=== PATIENT | male | born 1975 | race Two or more races ===

== ENCOUNTER 2019-04-21 13:27 | Inpatient (IN) | payer SELFPAY ==
[~2019-04-21] VITALS: Ht 172.7 cm; Wt 86.2 kg
[2019-04-21] MEDS ORDERED: LORazepam Inj 2mg/ml 1ml IV ONE (13:30)
--- NOTE | 2019-04-21 13:30 | NUR ---
ED Nurse Note: Patient brought in by ambulance RA 27 from work c/o numbness and tingling sensations on the left arm and left leg, left anterior chest pressure like pain 2/10 at this time 45 minutes prior to arrival to ED. patient is alert awake x4 amublatory, reports he feels difficulty breathing, placed patient on a child monitor and on a hospital gown.
[2019-04-21 13:58] LABS: HEMATOCRIT 44.9 % (42.0-52.0); HEMOGLOBIN 15.5 G/DL (14.2-18.0); LYMPHOCYTES % (AUTO) 23.8 % (20.0-45.0); MEAN CORPUSCULAR VOLUME 86 FL (80-99); MONOCYTES % (AUTO) 5.5 % (1.0-10.0); NEUTROPHILS % (AUTO) 65.7 % (45.0-75.0); PLATELET COUNT 261 K/UL (150-450); RED BLOOD COUNT 5.21 M/UL (4.70-6.10); RED CELL DISTRIBUTION WIDTH 10.8 % (11.6-14.8); WHITE BLOOD COUNT 7.1 K/UL (4.8-10.8)
[2019-04-21 14:06] LABS: ANION GAP 11 mmol/L (5-15); BLOOD UREA NITROGEN 17 mg/dL (7-18); CALCIUM 8.9 MG/DL (8.5-10.1); CARBON DIOXIDE 26 MMOL/L (21-32); CHLORIDE 103 MMOL/L (98-107); CREATININE 1.1 MG/DL (0.55-1.30); POTASSIUM 3.8 MMOL/L (3.5-5.1); SODIUM 140 MMOL/L (136-145)
[2019-04-21 14:11] LABS: INR 0.9 (0.9-1.1)
--- NOTE | 2019-04-21 14:11 | Emergency Room Report ---
History of Present Illness General Chief Complaint: Chest Pain Source: Patient Present Illness HPI Patient was at work today and 45 minutes prior to EMS arriving he started having tingling in his left arm with some chest discomfort. The chest discomfort is poorly described but he admits to possible sharpness and pressure left-sided nonradiating. Initially he reports that pain at 10/10. He also had some tingling in his leg without any weakness. He started to get anxious and started to have tingling around his mouth also. The patient states this is never happened to him before. He denies any headache. He has a history of hypertension. He was drinking alcohol yesterday. He drinks alcohol frequently. He only drinks beer. Risk factors for cardiac disease: Hypertension No fevers, chills, sore throat, palpitations, nausea, vomiting, diarrhea, dysuria, abdominal pain, shortness of breath, joint pain, rashes, depression, visual changes, dizziness. Allergies: Coded Allergies: PEANUT (Verified Allergy, Mild, 04/21/19) Patient History Past Medical History: see triage record Social History: Reports: alcohol use; Denies: smoking, drug use Social History Narrative Obstetrics/Gynecology Nurse, born in [place] Reviewed Nursing Documentation: PMH: Agreed; PSxH: Agreed Nursing Documentation-PMH Past Medical History: No Stated History Review of Systems All Other Systems: negative except mentioned in HPI Physical Exam Vital Signs Date Time Temp Pulse Resp B/P (MAP) Pulse Ox O2 Delivery O2 Flow Rate FiO2 04/21/19 13:22 98.2 116 16 160/108 (125) 99 Room Air Sp02 EP Interpretation: reviewed, normal General Appearance: well appearing, no apparent distress, GCS 15, non-toxic Head: normocephalic Eyes: bilateral eye normal inspection, bilateral eye PERRL, bilateral eye EOMI ENT: moist mucus membranes Neck: supple Respiratory: lungs clear, normal breath sounds Cardiovascular #1: no edema, tachycardia Cardiovascular #2: 2+ radial (R) Gastrointestinal: normal inspection, normal bowel sounds, non tender, no mass, non-distended Genitourinary: no CVA tenderness Musculoskeletal: back normal, gait/station normal, normal range of motion Neurologic: alert, oriented x3, analytical strategist III-XII nml as tested, motor strength/tone normal, DTRs symmetric, cerebellar normal, normal gait, speech normal, sensory deficit - Subjective numbness left arm and left leg Psychiatric: anxious Skin: no rash, warm/dry Medical Decision Making Diagnostic Impression: Primary Impression: Chest pain Qualified Codes: R07.9 - Chest pain, unspecified Additional Impressions: Paresthesias Resting tachycardia Alcohol use ER Course Patient presents with left-sided chest pain and numbness in the left arm and leg paresthesias. Differential includes acute myocardial infarction, acute coronary syndrome, gastritis, reflux, stroke, anxiety, electrolyte imbalance amongst others. Patient will be evaluated with EKG, CT head, chest x-ray and labs. Patient is placed on a bus monitor. There is no evidence of major cerebral infarct based on physical exam. EKG sinus tachycardia right axis deviation with P pulmonale no acute changes. CT of the head no obvious infarct or bleeds. Chest x-ray clear. Labs unremarkable. Troponin negative. Aspirin was given. Patient somewhat more calm after Ativan however he states that the paresthesias and numbness still persistent on the left-hand side. The chest pain now is 2/ 10. Due to the presentation of chest pain and left-sided paresthesias patient admitted for observation. Consideration for neurologic consultation. Admit telemetry observation Dr. Hernandez. Laboratory Tests Test 04/21/19 13:30 04/21/19 15:40 04/21/19 19:15 White Blood Count 7.1 K/UL (4.8-10.8) Red Blood Count 5.21 M/UL (4.70-6.10) Hemoglobin 15.5 G/DL (14.2-18.0) Hematocrit 44.9 % (42.0-52.0) Mean Corpuscular Volume 86 FL (80-99) Mean Corpuscular Hemoglobin 29.8 PG (27.0-31.0) Mean Corpuscular Hemoglobin Concent 34.5 G/DL (32.0-36.0) Red Cell Distribution Width 10.8 % (11.6-14.8) L Platelet Count 261 K/UL (150-450) Mean Platelet Volume 4.9 FL (6.5-10.1) L Neutrophils (%) (Auto) 65.7 % (45.0-75.0) Lymphocytes (%) (Auto) 23.8 % (20.0-45.0) Monocytes (%) (Auto) 5.5 % (1.0-10.0) Eosinophils (%) (Auto) 4.0 % (0.0-3.0) H Basophils (%) (Auto) 1.0 % (0.0-2.0) Erythrocyte Sedimentation Rate 5 MM/HR (0-15) Prothrombin Time 9.7 SEC (9.30-11.50) Prothrombin Time INR 0.9 (0.9-1.1) PTT 24 SEC (23-33) Sodium Level 140 MMOL/L (136-145) Potassium Level 3.8 MMOL/L (3.5-5.1) Chloride Level 103 MMOL/L (98-107) Carbon Dioxide Level 26 MMOL/L (21-32) Anion Gap 11 mmol/L (5-15) Blood Urea Nitrogen 17 mg/dL (7-18) Creatinine 1.1 MG/DL (0.55-1.30) Estimate Glomerular Filtration Rate > 60 mL/min (>60) Glucose Level 150 MG/DL (74-106) H Calcium Level 8.9 MG/DL (8.5-10.1) Magnesium Level 2.0 MG/DL (1.8-2.4) Total Bilirubin 0.6 MG/DL (0.2-1.0) Aspartate Amino Transferase (AST) 22 U/L (15-37) Alanine Aminotransferase (ALT) 28 U/L (12-78) Alkaline Phosphatase 59 U/L (46-116) Total Creatine Kinase 249 U/L (26-308) Creatine Kinase MB 4.2 NG/ML (0.0-3.6) H Creatine Kinase MB Relative Index 1.6 Troponin I 0.007 ng/mL (0.000-0.056) 0.000 ng/mL (0.000-0.056) Pro-B-Type Natriuretic Peptide 45 pg/mL (0-125) Total Protein 7.4 G/DL (6.4-8.2) Albumin 4.0 G/DL (3.4-5.0) Globulin 3.4 g/dL Albumin/Globulin Ratio 1.2 (1.0-2.7) Thyroid Stimulating Hormone (TSH) 1.576 uiU/mL (0.358-3.740) 1.321 uiU/mL (0.358-3.740) Serum Alcohol < 3 mg/dL Urine Opiates Screen Negative (NEGATIVE) Urine Barbiturates Screen Negative (NEGATIVE) Phencyclidine (PCP) Screen Negative (NEGATIVE) Urine Amphetamines Screen Negative (NEGATIVE) Urine Benzodiazepines Screen Negative (NEGATIVE) Urine Cocaine Screen Negative (NEGATIVE) Urine Marijuana (THC) Screen Negative (NEGATIVE) EKG Diagnostic Results Rate: tachycardiac Rhythm: NSR ST Segments: no acute changes - Right axis deviation ASA given to the pt in ED: Yes Rhythm Strip Diag. Results EP Interpretation: yes Rhythm: no PVC's, no ectopy, other - ST Chest X-Ray Diagnostic Results Chest X-Ray Diagnostic Results : Chest X-Ray Ordered: Yes # of Views/Limited/Complete: 1 View Indication: Chest Pain EP Interpretation: Yes Interpretation: no consolidation, no effusion, no pneumothorax Impression: No acute disease Electronically Signed by: Electronically signed by Henry Thakur MD CT/MRI/US Diagnostic Results CT/MRI/US Diagnostic Results : Imaging Test Ordered: Head Impression Impression: No mass effect, edema or acute bleed. Last Vital Signs Date Time Temp Pulse Resp B/P (MAP) Pulse Ox O2 Delivery O2 Flow Rate FiO2 04/21/19 18:23 Room Air 04/21/19 17:50 98.2 113 22 144/81 99 Status: improved Disposition: PLACE IN OBSERVATION Condition: Serious Henry Thakur MD Apr 21, 2019 14:11
--- NOTE | 2019-04-21 14:12 | Diagnostic Imaging Report ---
Indication: Left arm neurosensory deficit. Left arm tingling Technique: Contiguous 5 mm thick transaxial imaging of the head obtained in a Siemens Sensation [address] scanner. Soft tissue and bone windows generated. Automatic Exposure Control was utilized. Total Dose length Product (DLP): 1457.[address] Dose Index Volume (CTDIvol): 62.7 mGy Comparison: none Findings: The size and configuration of the cortical sulci, basal cisterns, and ventricles are within normal limits for age. There is no mass effect, midline shift, or edema identified. There is no evidence of acute hemorrhage or abnormal intra-axial or extra-axial fluid collections. The bones and soft tissues are unremarkable. Impression: No mass effect, edema or acute bleed. The CT scanner at [facility] is accredited by the [employer] and the scans are performed using dose optimization techniques as appropriate to a performed exam including Automatic Exposure control.
--- NOTE | 2019-04-21 14:13 | Diagnostic Imaging Report ---
Indication: Dyspnea Comparison: None A single view chest radiograph was obtained. Findings: Cardiomediastinal appearance is within normal limits for age. The lungs are clear. Pulmonary vascularity is appropriate. The diaphragmatic contour is smooth and costophrenic angles are sharp. No pleural effusions are identified. The bones are unremarkable. Impression: No acute findings
[2019-04-21 14:22] LABS: ALANINE AMINOTRANSFERASE 28 U/L (12-78); ALBUMIN/GLOBULIN RATIO 1.2 (1.0-2.7); ALKALINE PHOSPHATASE 59 U/L (46-116); ASPARTATE AMINO TRANSFERASE 22 U/L (15-37); BILIRUBIN,TOTAL 0.6 MG/DL (0.2-1.0); CKMB 4.2 NG/ML (0.0-3.6); CREATINE KINASE 249 U/L (26-308)
[2019-04-21 14:37] VITALS: BP 138/88
[2019-04-21 16:51] VITALS: BP 144/81
--- NOTE | 2019-04-21 16:56 | NUR ---
ED Nurse Note: Report given to Francia ALEX. endorsed all plan of care to FRANCIA ALEX.
--- NOTE | 2019-04-21 17:50 | NUR ---
ED Nurse Note: patient transferred to 2E on ACLS protocol with all of his belongings.
--- NOTE | 2019-04-21 18:00 | NUR ---
NURSE NOTES: Patient transferred from ED to tele, received report from ISAI Hill. Patient AOx4, able to ambulate gurney to hospital bed with steady gait. Patient stated pain is better and getting full sensation back on the left hand. VS at the time of arrival 138/79, T 99.0, R 16, O2 sat on room air 97%, SR at this time. Belonging list checked, patient refused to put barbosa in the safe. child monitor on. IV on left AC 20G, asymptomatic, patent, intact. Bed in lowest position, side rails ups x2, call light within reach. Will continue to monitor.
--- NOTE | 2019-04-21 18:30 | NUR ---
NURSE NOTES: Left message on Dr. Hernandez regarding admission order. Awaiting for callback. Will continue to monitor.
--- NOTE | 2019-04-21 19:20 | NUR ---
NURSE NOTES: Dr. Hernandez at the nursing station, made aware admission order needed. Per Dr. Hernandez, will put in order.
--- NOTE | 2019-04-21 19:39 | NUR ---
HAND-OFF: Report given to ISAI Caraballo.
[2019-04-21 20:00] VITALS: BP 134/85
--- NOTE | 2019-04-21 20:00 | NUR ---
NURSE NOTES: Report received from Francia ALEX. Patient is observed in bed, awake, alert, oriented, and able to make needs known. IV is asymptomatic, patent, and intact. Patient denies any CP. Patient admits paresthesia in left arm has subsided. Radial pulse, sensation, and color are present. No abnormalities noted. Equal cone worker strength. Patient is in lowest position with side rails up x2 and brakes are engaged. Encouraged patient to use call light when in need of assistance, pt verbalized understanding. Urinal and call light within reach.
[2019-04-21] MEDS: Aspirin Baby 81mg ORAL SCH (21:46)
--- NOTE | 2019-04-21 22:30 | History and Physical Report ---
DATE OF ADMISSION: 04/21/2019 REASON FOR ADMISSION: Chest pain with left arm and leg pain. HISTORY OF PRESENT ILLNESS: This is a 43-year-old male with no prior cardiac or medical history. 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 He was doing his usual duties today on his knees bending forward and painting most of the day. He developed some tingling in his left arm and leg with some weakness for a short time. He also noted some left-sided chest aching under his armpit. He came to the emergency room where workup included a CAT scan of the brain revealing no acute process and an EKG revealing sinus tachycardia with no acute ST-T wave changes. Troponin level #1 was negative. PAST MEDICAL HISTORY: Otherwise negative. ALLERGIES: Include peanuts. MEDICATIONS: None. FAMILY HISTORY: Noncontributory. SOCIAL HISTORY: Negative for smoking, alcohol, or substance abuse. REVIEW OF SYSTEMS: Otherwise unremarkable. PHYSICAL EXAMINATION: VITAL SIGNS: Blood pressure 160/108 in the emergency room with heart rate 116, respiratory rate 16, and he was afebrile. Presently blood pressure 144/81, heart rate 113, respiratory rate 22, afebrile. NECK: Supple. No bruits. Jugular venous pressure normal. LUNGS: Clear. CARDIAC: Regular. Normal S1, S2 with no murmur, rub, or gallop. Left chest wall with no reproducible chest discomfort. ABDOMEN: Soft, nontender. EXTREMITIES: No edema. NEUROLOGIC: Nonfocal. IMAGING: Chest x-ray with no acute process. No active disease. IMPRESSION: 1. Noncardiac chest pain. 2. Sinus tachycardia, likely due to anxiety. 3. Possible transient ischemic attack versus positional related paresthesias. PLAN: 1. Cardiac monitoring. 2. Antiplatelet therapy. 3. Carotid duplex study. 4. Follow up troponin level. 5. Thyroid panel. 6. Lipid panel. 7. Further recommendations to follow once preliminary workup is complete. Should there be any recurring such symptoms during this hospital stay, more emergent imaging study of the central nervous system maybe considered. Henry Hernandez M.D. ELVIRA FORBES JOB#: [id number] CC:
--- NOTE | 2019-04-21 23:59 | NUR ---
NURSE NOTES: Patient is asleep, arousable by voice. Denies pain at this time. VSS. Will continue to monitor.
[2019-04-22] VITALS: BP 122/80
[2019-04-22 04:00] VITALS: BP 131/88
--- NOTE | 2019-04-22 07:25 | NUR ---
HAND-OFF: Report given to Nereyda ALEX. Patient observed in bed, eating breakfast. Endorsed plan of care.
--- NOTE | 2019-04-22 07:26 | NUR ---
NURSE NOTES: Received patient in bed. In no apparent distress. On room air. No respiratory distress. Denies any pain. Will continue plan of care.
[2019-04-22 07:47] LABS: CHOLESTEROL 261 MG/DL (< 200); HDL CHOLESTEROL 69 MG/DL (40-60); TRIGLYCERIDES 117 MG/DL (30-150)
[2019-04-22 08:00] VITALS: BP 131/84
[2019-04-22] MEDS: Aspirin Baby 81mg ORAL SCH (09:11)
[2019-04-22 12:00] VITALS: BP 122/70
--- NOTE | 2019-04-22 13:33 | Diagnostic Imaging Report ---
APPROVED REPORT CPT Code: 56650 Vascular Symptoms Comments: AMS CAROTID (BILATERAL) - Imaging reveals no significant plaque within the right and left extracranial carotid arteries. The Doppler spectral flow analysis is within normal limits throughout the extracranial carotid arteries bilaterally. SUBCLAVIANS/VERTEBRALS - Imaging reveals both subclavians and vertebral arteries to be patent, without evidence of stenosis or steal.
[2019-04-22 16:00] VITALS: BP 120/77
--- NOTE | 2019-04-22 16:33 | NUR ---
CASE MANAGEMENT:REVIEW 43 YR OLD MALE BIBA FROM WORK CC; CHEST PAIN AND SOB SI: CHEST PAIN. ALCOHOL USE 98.3 116 16 160/108 99% ON RA TROPONIN(-) IS: IV ATIVAN 1L NS BOLUS CT HEAD CXR : TO TELEMETRY IS: ASA PO QD
--- NOTE | 2019-04-22 16:47 | Cardiology Report ---
APPROVED REPORT EKG Measurement Heart [id number] Sinus tachycardia Rightward axis Borderline ECG
--- NOTE | 2019-04-22 19:16 | NUR ---
HAND-OFF: Report given to Sloane Bwoden RN.
--- NOTE | 2019-04-22 19:30 | NUR ---
NURSE NOTES: Received pt from ISAI Collins. Pt awake, alert, and awaiting removal of IV for D/C. Family at bedside. Will continue to monitor.
--- NOTE | 2019-04-22 20:02 | NUR ---
NURSE NOTES: Pt discharged. Family came to pick him up. IV site, tele box, and armband removed. Packet,prescriptions, and belongings remained with patient.
--- NOTE | 2019-04-23 14:15 | Discharge Summary ---
Discharge Summary Discharge Summary _ DATE OF ADMISSION: 04/21/2019 DATE OF DISCHARGE: 04/22/2019 DISCHARGED BY: Dr. Hernandez REASON FOR ADMISSION: 43 years old male with past medical history of hypertension, presented with chest discomfort and tingling in his left arm , while being at work. Chest discomfort was poorly described . initially pain reported as 10 out of 10 . Patient also had some tingling in his left leg without any weakness. He started to get more anxious and reported tingling around his mouth. Patient stated that these symptoms never happened to him before. He denied headache. He was drinking alcohol the day prior to presentation to emergency department. Patient reported frequent use of alcohol, but only drinks beer. Upon evaluation patient was tachycardic with heart rate 116. Blood pressure was elevated 160/108. Laboratory work-up revealed no leukocytosis, stable hemoglobin and hematocrit , stable platelet count. Stable electrolytes and renal parameters. Glucose 150. Stable LFT . TSH within normal limits. Troponin 0.007, ProBNP 45. EKG revealed sinus tachycardia with right axis deviation. Serum alcohol less than 3. Urine toxicology screen was negative. Alcohol level less than 3. Chest x-ray revealed no acute cardiopulmonary pathology. CT of the head revealed no acute intracranial pathology. In emergency department patient received aspirin and Ativan . After re-evaluation in ED, patient still was reported persistent paresthesia and numbness on the left side. Pain decreased to 2 out of 10. Patient subsequently admitted to telemetry floor for further management. HOSPITAL COURSE: Patient admitted to telemetry floor. Telemetry revealed sinus rhythm. Initial tachycardia resolved. Repeated troponin was negative. EKG and telemetry were negative. Patient was ruled out for acute HI. Patient was continued on antiplatelet therapy with Aspirin. Lipid panel revealed elevated cholesterol 261 , elevated LDL of 175 . Patient started on statin . Patient was counseled on low-fat low-cholesterol diet. Carotid duplex was unremarkable. Blood pressure stabilized without any antihypertensive medications. Prior to discharge BP 120/77. Pain management was addressed. TSH was within normal limits. All metabolic profile stable. Patient clinically stabilized . All symptoms resolved. Patient was ready for discharge home. Due to rapid and unexpected improvement in patient condition, patient was discharged in one day. FINAL DIAGNOSES: Noncardiac chest pain Sinus tachycardia, likely due to anxiety -resolved Possible transient ischemic attack versus position l related paresthesia DISCHARGE MEDICATIONS: See Medication Reconciliation list. DISCHARGE INSTRUCTIONS: Patient was discharged home . Follow up with primary care provider in one -two weeks. I have been assigned to dictate discharge summary for this account. I was not involved in the patient's management. Laura Winter NP Apr 23, 2019 14:15
--- NOTE | 2019-04-30 21:26 | Coder Physician Query ---
Clarification is required for compliance, coding accuracy, and to reflect severity of illness for this patient Dear Dr. Hernandez Date 04/29/19 [facility]/CDS' Name: OLE Waggoner HOSPITAL COURSE: Patient admitted to telemetry floor. Telemetry revealed sinus rhythm. Initial tachycardia resolved. Repeated troponin was negative. EKG and telemetry were negative. Patient was ruled out for acute DE. Patient was continued on antiplatelet therapy with Aspirin. FINAL DIAGNOSES: Noncardiac chest pain Sinus tachycardia, likely due to anxiety -resolved Possible transient ischemic attack versus position l related paresthesia Please document the suspected etiology of Chest Pain: [] Anxiety [] Costochondritis [] tachycardia [] Pneumothorax [] GERD/Esophagitis [] Other: [] Unable to determine Henry Hernandez M.D. Date Please also document in your Progress Notes and/or Discharge Summary and indicate if the condition was present on admission. GEMMA
== END 2019-04-22 19:50 | disposition home or self-care (01) | DRG 313 ==
LOC: EDBD 13:27 → EMR 14:20 → EDBEDREQ 14:42 → INTOOBSV 15:45 → 2E 15:45 → OBSVTOIN 15:45 → EDBEDREQ 16:42
DX: R07.89 Other chest pain (principal); G45.9 Transient cerebral ischemic attack, unspecified; R00.0 Tachycardia, unspecified; R20.2 Paresthesia of skin; F41.9 Anxiety disorder, unspecified; I10 Essential (primary) hypertension
CPT/HCPCS: 36415; 70450; 71045; 80053; 80061; 80307; 82550; 82553; 83735; 83880; 84443; 84484; 85025; 85610; 85651; 85730; 93005; 93880; 96361; 96374; 99284; G0480; J7030